=== PATIENT | female | born 1990 | race American Indian/Alaskan Native ===

== ENCOUNTER 2020-10-20 11:32 | Emergency (ER) | payer SELFPAY ==
[2020-10-20 11:49] VITALS: BP 141/78
[2020-10-20 12:59] LABS: Bacteria,Urine 1+ /HPF (Negative); Bilirubin,Urine NEG (Negative); Blood,Urine SM (Negative); Color,Urine Amber (Yellow); Protein,Urine <15 mg/dL mg/dL (Negative)
[2020-10-20 13:11] LABS: HCG Qualitative,Urine Negative (Negative)
--- NOTE | 2020-10-20 14:20 | Emergency Department Report ---
ED General Adult HPI - General Chief complaint: Urogenital-Female Stated complaint: UTI BLEEDING Time Seen by Provider: 10/20/20 13:57 Source: patient Mode of arrival: Ambulatory Limitations: No Limitations - History of Present Illness Initial comments: 30-year-old -[place] female patient without past medical history presents with complaints of dysuria and hematuria x1 week. She states the dysuria has cleared, however she continues to have blood in her urine. No flank pain per patient, fever/chills/sweats, abdominal pain, dyspareunia/vaginal discharge, or vaginal bleeding. She states she is feeling well overall. No history of recurrent UTIs or diabetes. -: Sudden - Related Data Previous Rx's Medication Instructions Recorded Last Taken Type Acetaminophen/Codeine [Tylenol #3] 1 tab PO Q6H PRN #15 tab 09/10/14 Unknown Rx Amoxicillin 500 mg PO TID #30 tablet 09/10/14 Unknown Rx Sulfamethoxazole/Trimethoprim 1 each PO BID 5 Days #10 tablet 10/20/20 Unknown Rx [Bactrim DS TAB] Allergies Allergy/AdvReac Type Severity Reaction Status Date / Time No Known Allergies Allergy Verified 10/20/20 11:41 ED Review of Systems ROS: Stated complaint: UTI BLEEDING Other details as noted in HPI Constitutional: denies: chills, diaphoresis, fever, malaise, weakness Respiratory: denies: shortness of breath Cardiovascular: denies: chest pain Gastrointestinal: denies: abdominal pain, nausea, vomiting, diarrhea, constipation, hematemesis, melena, hematochezia Genitourinary: dysuria, frequency, hematuria. denies: discharge, abnormal menses, dyspareunia Musculoskeletal: denies: back pain Skin: denies: lesions, change in color Hematological/Lymphatic: denies: swollen glands ED Past Medical Hx - Past Medical History Previous Medical History?: No - Surgical History Past Surgical History?: No - Social History Smoking Status: Never Smoker Substance Use Type: None - Medications Home Medications: Home Medications Medication Instructions Recorded Confirmed Last Taken Type Acetaminophen/Codeine [Tylenol #3] 1 tab PO Q6H PRN #15 tab 09/10/14 Unknown Rx Amoxicillin 500 mg PO TID #30 tablet 09/10/14 Unknown Rx Sulfamethoxazole/Trimethoprim 1 each PO BID 5 Days #10 tablet 10/20/20 Unknown Rx [Bactrim DS TAB] ED Physical Exam - General Limitations: No Limitations General appearance: alert, in no apparent distress, obese - Head Head exam: Present: atraumatic, normocephalic - Eye Eye exam: Present: normal appearance - Respiratory Respiratory exam: Present: normal lung sounds bilaterally. Absent: respiratory distress - Cardiovascular Cardiovascular Exam: Present: regular rate - GI/Abdominal GI/Abdominal exam: Present: soft, normal bowel sounds. Absent: distended, tenderness, guarding, rebound, rigid - Neurological Exam Neurological exam: Present: alert, oriented X3, normal gait - Psychiatric Psychiatric exam: Present: normal affect, normal mood - Skin Skin exam: Present: warm, dry, intact, normal color. Absent: rash ED Course Vital Signs 10/20/20 10/20/20 11:43 11:44 Temperature 98.5 F Pulse Rate 87 90 Respiratory 18 Rate Blood Pressure 141/78 O2 Sat by Pulse 100 100 Oximetry ED Medical Decision Making - Radiology Data Radiology results: report reviewed - Medical Decision Making 30-year-old -[place] female patient without past medical history presents with complaints of dysuria and hematuria x1 week. She states the dysuria has cleared, however she continues to have blood in her urine. No flank pain per patient, fever/chills/sweats, abdominal pain, dyspareunia/vaginal discharge, or vaginal bleeding. She states she is feeling well overall. No history of recurrent UTIs or diabetes. Urine shows 85 WBCs. Will treat for UTI with Bactrim. Patient to follow-up with her primary care doctor as needed. She is well-appearing, her vitals are normal, she is stable for discharge home. Strict return precautions discussed in detail with patient who verbalizes understanding. Blood pressure noted to be mildly elevated. Patient denies history of hypertension. Recommend follow-up with primary care provider for recheck of blood pressure Critical care attestation.: If time is entered above; I have spent that time in minutes in the direct care of this critically ill patient, excluding procedure time. ED Disposition Clinical Impression: Elevated blood pressure reading, UTI (urinary tract infection) Disposition: TO HOME OR SELFCARE Is pt being admited?: No Condition: Stable Instructions: Hypertension, Adult, Urinary Tract Infection, Adult Prescriptions: Sulfamethoxazole/Trimethoprim [Bactrim DS TAB] 1 each PO BID 5 Days #10 tablet Referrals: [facility] [Provider Group] - 3-5 Days Forms: Work/School Release Form(ED)
== END 2020-10-20 15:08 | disposition home or self-care (01) ==
LOC: ED 11:32
DX: N39.0 Urinary tract infection, site not specified (principal); R03.0 Elevated blood-pressure reading, without diagnosis of hypertension; Z79.899 Other long term (current) drug therapy
CPT/HCPCS: 81001; 81025; 87076; 87086; 87186; 99283

== ENCOUNTER 2021-03-05 13:26 | Emergency (ER) | payer OTHER ==
[2021-03-05 13:31] VITALS: BP 120/68
[2021-03-05] MEDS ORDERED: NEOMY 3.5 MG/BACIT 400 UNITS/POLY B 5000 UNITS/GM OINT PACKET TP ONE (13:46)
== END 2021-03-05 14:08 | disposition home or self-care (01) ==
LOC: ED 13:26
DX: H61.899 Other specified disorders of external ear, unspecified ear (principal); Z53.21 Procedure and treatment not carried out due to patient leaving prior to being seen by health care provider

== ENCOUNTER 2021-10-06 16:01 | Emergency (ER) | payer OTHER ==
[2021-10-06 17:22] VITALS: BP 137/82
[2021-10-06 17:42] LABS: Bilirubin,Urine NEG (Negative); Blood,Urine NEG (Negative); Color,Urine Yellow (Yellow); Protein,Urine <15 mg/dL mg/dL (Negative); Urobilinogen,Urine < 2.0 mg/dL (<2.0)
[2021-10-06 17:47] LABS: Mucus,Urine 2+ /HPF; RBC,Urine < 1.0 /HPF (0.0-6.0)
[2021-10-06 17:49] LABS: HCG Qualitative,Urine Negative (Negative)
== END 2021-10-06 22:26 | disposition left against medical advice (07) ==
LOC: ED 16:01
DX: N89.8 Other specified noninflammatory disorders of vagina (principal); Z53.21 Procedure and treatment not carried out due to patient leaving prior to being seen by health care provider
CPT/HCPCS: 81001; 81025